=== PATIENT | male | born 1990 | race Caucasian/White ===

== ENCOUNTER 2017-10-01 17:25 | Emergency (ER) | payer SELFPAY ==
[2017-10-01] MEDS ORDERED: cefTRIAXone\\ROCEPHIN 1 GM VIAL ONE (17:55)
[2017-10-01] MEDS ORDERED: Sodium Chloride 0.9% 100 ML ONE (17:56)
[2017-10-01] MEDS ORDERED: Fentanyl 100 MCG/2 ML VIAL ONE (18:03)
== END 2017-10-01 19:25 | disposition home or self-care (01) ==
LOC: BURERS 17:25
DX: J02.9 Acute pharyngitis, unspecified (principal); I10 Essential (primary) hypertension; F17.210 Nicotine dependence, cigarettes, uncomplicated
CPT/HCPCS: 96361; 96365; 96375; J0696; J3010; J7050

== ENCOUNTER 2017-11-17 18:56 | Emergency (ER) | payer SELFPAY ==
[2017-11-17] MEDS ORDERED: HYDROcodone/Acetaminophen 10/325 mg Tablet ONE (19:56)
[2017-11-17] MEDS ORDERED: AMOXicillin 250 MG CAP ONE ×3 (19:56→19:59)
== END 2017-11-17 20:02 | disposition home or self-care (01) ==
LOC: BURERS 18:56
DX: K08.89 Other specified disorders of teeth and supporting structures (principal); I10 Essential (primary) hypertension; F17.210 Nicotine dependence, cigarettes, uncomplicated
CPT/HCPCS: 99282

== ENCOUNTER 2018-02-07 19:57 | Emergency (ER) | payer SELFPAY ==
[2018-02-07] MEDS ORDERED: Lidocaine Viscous Sol 2% 15 ml UD Cup ONE (21:00)
[2018-02-07] MEDS ORDERED: Mag-Al Plus 1200 MG/1200 MG/120 MG/30 ML UDCUP ONE (21:00)
[2018-02-07 21:01] LABS: #Basophils 0.1 thou/uL (0.0-0.2); #Eosinphils 0.1 thou/uL (0.0-0.7); #Lymphocytes 1.8 thou/uL (1.20-3.40); #Monocytes 0.5 thou/uL (0.11-0.59); #Neutrophils 4.9 thou/uL (1.40-6.50); %Eosinophils 1.6 % (0.0-10.0); %Lymphocytes 24.8 % (21.0-51.0); %Monocytes 6.3 % (0.0-10.0); %Neutrophils 66.4 % (42.0-75.0); Hemoglobin 17.1 g/dL (14.0-18.0); Mean Corpuscular HGB CONC 35.4 g/dL (32.0-36.0); Mean Corpuscular Hemoglobin 28.9 pg (27.0-31.0); Mean Corpuscular Volume 81.5 fL (78.0-98.0); Mean Platelet Volume 8.7 fL (7.4-10.4); Platelet Count 223 thou/uL (130-400); Red Blood Cell (RBC) Count 5.92 mill/uL (4.70-6.10); White Blood Cell (WBC) Count 7.4 thou/uL (4.8-10.8)
[2018-02-07 21:14] LABS: ALT (SGPT) 19 U/L (8-55); AST (SGOT) 15 U/L (5-34); Alkaline Phosphatase 64 U/L (40-150); Anion Gap 15 mmol/L (10-20); BUN (Urea Nitrogen) 24 mg/dL (8.9-20.6); Bilirubin, Total 1.2 mg/dL (0.2-1.2); Calc. Creatinine Clearance 0 mL/min (70-130); Calcium 10.3 mg/dL (7.8-10.44); Carbon Dioxide 21 mmol/L (22-29); Chloride 107 mmol/L (98-107); Estimated GFR-MDRD Greater than 90; Globulin 3.3 g/dL (2.4-3.5); Glucose 97 mg/dL (70-105); Lipase 7 U/L (8-78); Potassium 3.8 mmol/L (3.5-5.1); Protein, Total 8.3 g/dL (6.0-8.3); Sodium 139 mmol/L (136-145)
[2018-02-07] MEDS ORDERED: Ondansetron HCl/PF 4 MG/2 ML Vial ONE (21:16)
[2018-02-07] MEDS ORDERED: traMADol HCl 50 MG TAB ONE (21:39)
== END 2018-02-07 21:47 | disposition left against medical advice (07) ==
LOC: BURERS 19:57
DX: R10.12 Left upper quadrant pain (principal); R11.2 Nausea with vomiting, unspecified; I10 Essential (primary) hypertension; F17.210 Nicotine dependence, cigarettes, uncomplicated
CPT/HCPCS: 36415; 80053; 83605; 83690; 85025; 96365; J2405

== ENCOUNTER 2018-10-06 20:45 | Emergency (ER) | payer SELFPAY ==
[~2018-10-06 20:45] MED LIST: Sodium Bicarb 50 MEQ/50 ML Abboject 8.4% SYRINGE ONE
[2018-10-06] MEDS ORDERED: Norepinephrine 4 MG/4 ML VIAL ONE (21:00)
[2018-10-06 21:06] LABS: #Basophils 0.1 thou/uL (0.0-0.2); #Eosinphils 0.1 thou/uL (0.0-0.7); #Lymphocytes 1.7 thou/uL (1.20-3.40); #Monocytes 0.6 thou/uL (0.11-0.59); #Neutrophils 5.2 thou/uL (1.40-6.50); %Basophils 1.2 % (0.0-1.0); %Eosinophils 1.7 % (0.0-10.0); %Lymphocytes 22.2 % (21.0-51.0); %Monocytes 7.7 % (0.0-10.0); %Neutrophils 67.2 % (42.0-75.0); Hemoglobin 12.4 g/dL (14.0-18.0); Mean Corpuscular HGB CONC 33.7 g/dL (32.0-36.0); Mean Corpuscular Volume 85.9 fL (78.0-98.0); Mean Platelet Volume 9.4 fL (7.4-10.4); Platelet Count 138 thou/uL (130-400); RBC Distribution Width 11.6 % (11.5-14.5); Red Blood Cell (RBC) Count 4.29 mill/uL (4.70-6.10); White Blood Cell (WBC) Count 7.8 thou/uL (4.8-10.8)
[2018-10-06 21:07] LABS: Manual Diff?? NO
[2018-10-06 21:08] LABS: MDiff Complete? YES
[2018-10-06 21:13] LABS: INR-International Normal Ratio 1.3; PTT 27.3 SEC (22.9-36.1); Prothrombin Time 16.2 SEC (12.0-14.7)
[2018-10-06 21:21] LABS: ALT (SGPT) Less than 7 U/L (8-55); AST (SGOT) 5 U/L (5-34); Acetaminophen Less than 6.0 mcg/mL (10.0-30.0); Albumin Less than 1.5 g/dL (3.5-5.0); Alcohol Less than 10 mg/dL (Less than 10); Alkaline Phosphatase 19 U/L (40-150); Anion Gap 6 mmol/L (10-20); BUN (Urea Nitrogen) 10 mg/dL (8.9-20.6); Bilirubin, Total 0.3 mg/dL (0.2-1.2); Calc. Creatinine Clearance 0 mL/min (70-130); Carbon Dioxide 14 mmol/L (22-29); Estimated GFR-MDRD Greater than 90; Globulin 0.8 g/dL (2.4-3.5); Glucose 107 mg/dL (70-105); Protein, Total 2.3 g/dL (6.0-8.3); Salicylate Less than 8.0 mg/dL (15.0-30.0); Sodium 148 mmol/L (136-145)
--- NOTE | 2018-10-06 21:22 | RAD ---
Radiograph chest 1 view: DATE: 10/06/2018 Time: 9:03 PM HISTORY: Status post tube placement in 28-year-old male FINDINGS: Single AP view excludes the lung apices. Defibrillation paddle overlies the right lateral upper and m id lung. Cardiomediastinal silhouette is normal. Visualized lung ribeiro are clear. What appears to be the distal tip of an endotracheal tube is present approximate 7 cm superior to the stefani. IMPRESSION: 1. Questionable endotracheal tube 7 cm superior to stefani, incompletely imaged. Upper portion of ches t has been excluded from the [id number]. 2. Recommend repeat radiograph with better [id number] coverage.
[2018-10-06 21:26] LABS: Calcium 3.5 mg/dL (7.8-10.44); Chloride 130 mmol/L (98-107); Potassium 1.8 mmol/L (3.5-5.1)
--- NOTE | 2018-10-06 21:33 | RAD ---
RADIOGRAPH CHEST 1 VIEW: DATE: 10/06/2018 9:16 PM HISTORY: 28-year-old male status post intubation COMPARISON: 10/06/2018 at 9:03 PM FINDINGS: Repeat chest radiograph with much better positioning shows tip of endotracheal tube in the neck at th e C6-7 level, approximately 11 cm superior to the stefani. There are no airspace densities, pulmonary edema, or cardiomegaly. The lateral costophrenic angles ar e sharp. The defibrillation paddle again noted. IMPRESSION: Endotracheal tube is in the neck
[2018-10-06 21:42] LABS: Base Excess-Venous -14.4 mmol/L (-2.0 to 3.0); Bicarbonate (HCO3v) 12.6 mmol/L (22.0-28.0); CO2 Tension (PvCO2) 33.3 mmHg (40.0-50.0); Calcium, Ionized 0.64 mmol/L (See Comments:); Chloride 120 mmol/L (98-107); Hemoglobin - Calc 5.4 g/dL (14.0-18.0); O2 Tension (PvO2) 157.2 mmHg (35.0-45.0); Potassium 1.8 mmol/L (3.5-5.1); Sodium 153 mmol/L (138-145); T. Carbon Dioxide 13.6 mmol/L (22.0-28.0); pH (Venous) 7.185 (7.320-7.430); vO2 Saturation-calc 98.9 % (60.0-85.0)
[2018-10-06 21:50] LABS: Clarity Hazy (Clear); Glucose, Urine (Dipstick) Negative (Negative); Leukocyte Negative (Negative); Nitrite Negative (Negative); Protein, Urine (Dipstick) 100 mg/dL (Neg-Trace)
[2018-10-06 21:51] LABS: Bilirubin Small (Negative); Blood, Urine Negative (Negative)
[2018-10-06 21:59] LABS: Crystals/HPF 1+ AMORPH URATES HPF (Negative); RBC/HPF 0-3 HPF (0-3); Squamous Epithelial 0-3 HPF (0-3); WBC/HPF 0-3 HPF (0-3)
[2018-10-06 22:01] LABS: Amphetamine Detected (NotDetected); Barbiturates Screen Not Detected (NotDetected); Benzodiazepine Screen Not Detected (NotDetected); Cocaine Metabolite Screen Not Detected (NotDetected); Medtox Control Line Valid? VALID (VALID); Methadone Not Detected (NotDetected); Methamphetamine Detected (NotDetected); Opiate Screen Not Detected (NotDetected); Oxycodone Screen Not Detected (NotDetected); Phencyclidine (PCP) Not Detected (NotDetected); THC/Cannabinoid Screen Detected (NotDetected); Tricyclic Screen Detected (NotDetected)
== END 2018-10-06 22:15 | disposition short-term general hospital (02) ==
LOC: BURERS 20:45
DX: T43.012A Poisoning by tricyclic antidepressants, intentional self-harm, initial encounter (principal); F17.210 Nicotine dependence, cigarettes, uncomplicated
CPT/HCPCS: 51703; 71045; 80053; 80306; 80307; 81003; 81015; 82330; 82803; 84443; 84484; 85025; 85610; 85730; 92950; 94760; 96361; 96365; 96368; 96375; 96376

== ENCOUNTER 2018-10-27 17:00 | Emergency (ER) | payer SELFPAY ==
[2018-10-27] MEDS ORDERED: AMOXicillin 250 MG CAP ONE (17:20)
[2018-10-27] MEDS ORDERED: HYDROcodone/Acetaminophen 10/325 mg Tablet ONE (17:22)
== END 2018-10-27 17:24 | disposition home or self-care (01) ==
LOC: BURERS 17:00
DX: K02.9 Dental caries, unspecified (principal); I10 Essential (primary) hypertension; F17.210 Nicotine dependence, cigarettes, uncomplicated; Z79.899 Other long term (current) drug therapy
CPT/HCPCS: 99282

== ENCOUNTER 2018-11-08 19:59 | Emergency (ER) | payer SELFPAY ==
[2018-11-08 20:29] LABS: #Basophils 0.1 thou/uL (0.0-0.2); #Eosinphils 0.4 thou/uL (0.0-0.7); #Lymphocytes 1.2 thou/uL (1.20-3.40); #Monocytes 0.5 thou/uL (0.11-0.59); #Neutrophils 3.5 thou/uL (1.40-6.50); %Basophils 1.2 % (0.0-1.0); %Eosinophils 7.9 % (0.0-10.0); %Lymphocytes 21.4 % (21.0-51.0); %Neutrophils 61.6 % (42.0-75.0); Hemoglobin 12.3 g/dL (14.0-18.0); Mean Corpuscular HGB CONC 33.8 g/dL (32.0-36.0); Mean Corpuscular Hemoglobin 30.2 pg (27.0-31.0); Mean Corpuscular Volume 89.3 fL (78.0-98.0); Mean Platelet Volume 7.5 fL (7.4-10.4); Platelet Count 137 thou/uL (130-400); RBC Distribution Width 13.4 % (11.5-14.5); Red Blood Cell (RBC) Count 4.07 mill/uL (4.70-6.10); White Blood Cell (WBC) Count 5.7 thou/uL (4.8-10.8)
[2018-11-08] MEDS ORDERED: Lidocaine Viscous Sol 2% 15 ml UD Cup ONE (20:37)
[2018-11-08] MEDS ORDERED: Mag-Al Plus 1200 MG/1200 MG/120 MG/30 ML UDCUP ONE (20:37)
[2018-11-08 20:46] LABS: ALT (SGPT) 15 U/L (8-55); AST (SGOT) 12 U/L (5-34); Albumin 3.6 g/dL (3.5-5.0); Alkaline Phosphatase 37 U/L (40-150); Anion Gap 14 mmol/L (10-20); BUN (Urea Nitrogen) 23 mg/dL (8.9-20.6); Bilirubin, Total Less than 0.2 mg/dL (0.2-1.2); Calc. Creatinine Clearance 0 mL/min (70-130); Calcium 8.3 mg/dL (7.8-10.44); Carbon Dioxide 23 mmol/L (22-29); Chloride 108 mmol/L (98-107); Estimated GFR-MDRD Greater than 90; Globulin 2.2 g/dL (2.4-3.5); Glucose 106 mg/dL (70-105); Lipase 16 U/L (8-78); Protein, Total 5.8 g/dL (6.0-8.3); Sodium 141 mmol/L (136-145)
--- NOTE | 2018-11-08 20:58 | RAD ---
PORTABLE CHEST: 11/08/18 An AP portable film at 2021 is compared with a 10/06/18 study. The heart is normal in size and the lungs are clear. No infiltrate or effusion was seen. The mediasti num appears normal. IMPRESSION: No acute finding. POS: HOME
[2018-11-08] MEDS ORDERED: diphenhydrAMINE 50 MG/ML VIAL ONE (21:09)
[2018-11-08 22:32] LABS: Troponin I Less than 0.010 ng/mL (< 0.028)
== END 2018-11-08 22:44 | disposition home or self-care (01) ==
LOC: BURERS 19:59
DX: R07.89 Other chest pain (principal); I10 Essential (primary) hypertension; F17.220 Nicotine dependence, chewing tobacco, uncomplicated
CPT/HCPCS: 36415; 71045; 80053; 83690; 84484; 85025; 96361; 96374; J1200

== ENCOUNTER 2019-09-17 18:12 | Emergency (ER) | payer SELFPAY ==
[2019-09-17] MEDS ORDERED: Lidocaine 2% PF 5 ML VIAL ONE (18:47)
[2019-09-17] MEDS ORDERED: Adacel (T-DAP) 0.5 ML SYRINGE ONE (19:05)
[2019-09-17] MEDS ORDERED: Cephalexin 250 MG CAP ONE (19:05)
[2019-09-17] MEDS ORDERED: Bacitracin 1 PK ONE (19:06)
== END 2019-09-17 19:10 | disposition home or self-care (01) ==
LOC: BURERS 18:12
DX: S61.213A Laceration without foreign body of left middle finger without damage to nail, initial encounter (principal); I10 Essential (primary) hypertension; F41.9 Anxiety disorder, unspecified; F31.9 Bipolar disorder, unspecified; F17.220 Nicotine dependence, chewing tobacco, uncomplicated; Z79.899 Other long term (current) drug therapy; W26.0XXA Contact with knife, initial encounter
CPT/HCPCS: 12001; 90471; 90715; J2001

== ENCOUNTER 2020-02-12 20:07 | Emergency (ER) | payer SELFPAY ==
[2020-02-12] MEDS ORDERED: predniSONE 20 MG TAB ONE (20:44)
== END 2020-02-12 20:48 | disposition home or self-care (01) ==
LOC: BURERS 20:07
DX: S50.862A Insect bite (nonvenomous) of left forearm, initial encounter (principal); S50.812A Abrasion of left forearm, initial encounter; F41.9 Anxiety disorder, unspecified; F31.9 Bipolar disorder, unspecified; F17.210 Nicotine dependence, cigarettes, uncomplicated; I10 Essential (primary) hypertension; Q85.00 Neurofibromatosis, unspecified; Z79.899 Other long term (current) drug therapy; W57.XXXA Bitten or stung by nonvenomous insect and other nonvenomous arthropods, initial encounter
CPT/HCPCS: 99282; J7512

== ENCOUNTER 2020-03-14 16:54 | Emergency (ER) | payer SELFPAY ==
[2020-03-14] MEDS ORDERED: Fentanyl 100 MCG/2 ML VIAL ONE (17:17)
[2020-03-14 17:18] LABS: #Basophils 0.1 thou/uL (0.0-0.2); #Eosinphils 0.3 thou/uL (0.0-0.7); #Lymphocytes 1.5 thou/uL (1.20-3.40); #Monocytes 0.5 thou/uL (0.11-0.59); #Neutrophils 5.5 thou/uL (1.40-6.50); %Basophils 1.1 % (0.0-1.0); %Eosinophils 3.4 % (0.0-10.0); %Lymphocytes 19.2 % (21.0-51.0); %Monocytes 6.5 % (0.0-10.0); %Neutrophils 69.8 % (42.0-75.0); Hemoglobin 15.8 g/dL (14.0-18.0); Mean Corpuscular HGB CONC 33.5 g/dL (32.0-36.0); Mean Corpuscular Hemoglobin 29.2 pg (27.0-31.0); Platelet Count 192 thou/uL (130-400); RBC Distribution Width 11.6 % (11.5-14.5); Red Blood Cell (RBC) Count 5.43 mill/uL (4.70-6.10); White Blood Cell (WBC) Count 7.9 thou/uL (4.8-10.8)
[2020-03-14 17:30] LABS: ALT (SGPT) 17 U/L (8-55); AST (SGOT) 13 U/L (5-34); Albumin 4.5 g/dL (3.5-5.0); Alkaline Phosphatase 71 U/L (40-110); Anion Gap 17 mmol/L (10-20); BUN (Urea Nitrogen) 18 mg/dL (8.9-20.6); Bilirubin, Total 0.5 mg/dL (0.2-1.2); Calc. Creatinine Clearance 0 mL/min (70-130); Calcium 9.2 mg/dL (7.8-10.44); Carbon Dioxide 22 mmol/L (22-29); Chloride 106 mmol/L (98-107); Estimated GFR-MDRD Greater than 90; Glucose 101 mg/dL (70-105); Potassium 3.5 mmol/L (3.5-5.1); Protein, Total 7.5 g/dL (6.0-8.3); Sodium 141 mmol/L (136-145)
--- NOTE | 2020-03-14 18:35 | CT ---
CT BRAIN WITHOUT CONTRAST: Date: 03-14-[address] was done following trauma. FINDINGS: The ventricles are normal in size with no shift. No intracranial bleeding, mass, or extraaxial hemato ma was seen. There is no sign of stroke, edema, or other acute change. The skull appears intact. Ther e is no air fluid level in the sphenoid sinus and the visible paranasal sinuses and mastoid air cells are clear. An area of soft tissue swelling is seen in the high left side of the scalp, but the under lying bone appears normal. IMPRESSION: No acute intracranial findings. POS: HOME
--- NOTE | 2020-03-14 18:37 | CT ---
CT OF THE CERVICAL SPINE: Date: 03-14-[address] of the cervical spine was done following trauma. FINDINGS: There is loss of the normal cervical lordosis. This may be due to muscle spasm. The alignment of the spine was normal. The facets are normally located. There is no disc space narrowing, fracture, disloc ation, or soft tissue swelling. The C1-2 dens distance is normal. There appears to be some sort of an omaly of the posterior elements of C2 on the right side. This is obviously long-standing and not acut e. There is no evidence of foraminal narrowing or central canal stenosis at any cervical level. IMPRESSION: Straightening of the cervical spine but no acute findings otherwise. POS: HOME
--- NOTE | 2020-03-14 18:42 | CT ---
CT CHEST, ABDOMEN, AND PELVIS WITH CONTRAST: Date: 03-14-2020 Comparison: 01-17-19 FINDINGS: CT THORAX WITH CONTRAST: Images show acute traumatic changes in the chest. There is no sign of aortic injury or mediastinal he matoma. The lungs are clear except for some dependent atelectasis. There is no pneumothorax or pleura l effusion. The ribs, sternum, and spine all appeared intact. An unusual finding is what appears to be multiple blebs located on the surface of the lungs bilateral ly. This can be seen on the 2019 CT, though they seem a little more numerous in number today. It woul d not surprise me if the patient were to develop a spontaneous pneumothorax at some point. The etiolo gy of these is unknown. This certainly has no relationship to the current trauma. CT ABDOMEN AND PELVIS WITH CONTRAST: The liver, spleen, pancreas, adrenal glands, kidneys, gallbladder, and aorta all appear intact. There is no sign of laceration or hematoma in any major organ. The bowel is not distended. There is no [place] e air or free fluid apparent. The CT of the pelvis shows no pelvic masses, hemorrhage, or inflammatory changes. The bony pelvis and lumbar spine appear intact. No fractures were noted. The hips appear intact. IMPRESSION: 1. No acute traumatic findings in the chest, abdomen, or pelvis. 2. Curious findings in the patient's lungs. There appear to be multiple tiny blebs coating the surfac e of each lung. This was present on a prior CT, though there may be a few more of them today than bef ore. The significance of the finding is unknown, though obviously unrelated to the current injury. Preliminary report discussed with Dr. Mack at 1759 on 03-14-2020. POS: HOME
== END 2020-03-14 19:00 | disposition home or self-care (01) ==
LOC: BURERS 16:54
DX: S70.01XA Contusion of right hip, initial encounter (principal); S20.211A Contusion of right front wall of thorax, initial encounter; S50.312A Abrasion of left elbow, initial encounter; S50.311A Abrasion of right elbow, initial encounter; S70.311A Abrasion, right thigh, initial encounter; M54.5 Low back pain; I10 Essential (primary) hypertension; F32.9 Major depressive disorder, single episode, unspecified; F41.9 Anxiety disorder, unspecified; F17.210 Nicotine dependence, cigarettes, uncomplicated; Z79.899 Other long term (current) drug therapy; V86.95XA Unspecified occupant of 3- or 4- wheeled all-terrain vehicle (ATV) injured in nontraffic accident, initial encounter
CPT/HCPCS: 36415; 70450; 71260; 72125; 74177; 80053; 85025; 96374; J3010

== ENCOUNTER 2021-02-03 08:54 | Emergency (ER) | payer SELFPAY ==
[2021-02-04 00:29] LABS: SARS-CoV-2 PCR by NAA DETECTED (NotDetected)
== END 2021-02-03 09:30 | disposition home or self-care (01) ==
LOC: BURERS 08:54
DX: U07.1 COVID-19 (principal); F17.290 Nicotine dependence, other tobacco product, uncomplicated
CPT/HCPCS: 99283; U0003; U0005

== ENCOUNTER 2021-10-13 16:50 | Emergency (ER) | payer OTHER, SELFPAY ==
[2021-10-13] MEDS ORDERED: Bupivacaine HCl 0.5%/Epinephrine 1:200,000/PF 30 ml Vial ONE (17:29)
== END 2021-10-13 17:42 | disposition home or self-care (01) ==
LOC: BURERS 16:50
DX: K04.7 Periapical abscess without sinus (principal); I10 Essential (primary) hypertension; F17.290 Nicotine dependence, other tobacco product, uncomplicated
CPT/HCPCS: 64400

== ENCOUNTER 2022-03-02 19:34 | Emergency (ER) | payer SELFPAY ==
[2022-03-02] MEDS ORDERED: Acetaminophen 500 MG TAB ONE (20:32)
== END 2022-03-02 22:15 | disposition home or self-care (01) ==
LOC: BURERS 19:34
DX: R51.9 Headache, unspecified (principal); R19.7 Diarrhea, unspecified; R50.9 Fever, unspecified; F17.200 Nicotine dependence, unspecified, uncomplicated
CPT/HCPCS: 87081; 87430; 87804; 99284

== ENCOUNTER 2022-05-09 23:19 | Emergency (ER) | payer SELFPAY ==
[2022-05-09] MEDS ORDERED: Bacitracin 1 PK ONE (23:31)
[2022-05-09] MEDS ORDERED: Boostrix 0.5 ML (Tdap) VIAL (>/=7 yrs of age) ONE (23:39)
[2022-05-09] MEDS ORDERED: Doxycycline 100 MG CAP ONE (23:41)
== END 2022-05-09 23:48 | disposition home or self-care (01) ==
LOC: BURERS 23:19
DX: L03.116 Cellulitis of left lower limb (principal); F17.200 Nicotine dependence, unspecified, uncomplicated
CPT/HCPCS: 87070; 87077; 87186; 87205; 90471; 90715

== ENCOUNTER 2022-10-12 18:26 | Emergency (ER) | payer OTHER, SELFPAY ==
[2022-10-12] MEDS ORDERED: Ibuprofen 800 MG TAB ONE (18:54)
[2022-10-12] MEDS ORDERED: traMADol HCl 50 MG TAB ONE (18:57)
== END 2022-10-12 19:28 | disposition home or self-care (01) ==
LOC: BURERS 18:26
DX: S82.402A Unspecified fracture of shaft of left fibula, initial encounter for closed fracture (principal); K21.9 Gastro-esophageal reflux disease without esophagitis; F17.200 Nicotine dependence, unspecified, uncomplicated; W18.42XA Slipping, tripping and stumbling without falling due to stepping into hole or opening, initial encounter